=== PATIENT | female | born 1980 | race Caucasian/White ===

== ENCOUNTER 2016-07-05 06:53 | Inpatient (IN) | payer OTHER ==
[~2016-07-05] VITALS: Ht 162.6 cm; Wt 54.0 kg
[2016-07-05] VITALS (7 sets, daily range): BP systolic 113–141; BP diastolic 65–89; PULSE 60–73; RESP 18; Ht 162.6 cm; Wt 54.0 kg
[2016-07-05] MEDS ORDERED: LACTATED RINGER'S 1,000 ML IV PRN (07:00)
[2016-07-05] MEDS ORDERED: PREN1TAB62 PO (07:17)
[2016-07-05] MEDS ORDERED: LACTATED RINGER'S 1,000 ML IV SCH (07:19)
[2016-07-05] MEDS ORDERED: AMPICILLIN 2 GM/NS (PMX) 100 ML ONE (07:23)
[2016-07-05] MEDS ORDERED: METHYLERGONOVINE 0.2 MG INJ IM PRN (07:30)
[2016-07-05] MEDS ORDERED: OXYTOCIN 30 UNITS/LR 500 ML IV SCH ×3 (07:30→09:32)
[2016-07-05] MEDS ORDERED: MISOPROSTOL 200 MCG TAB PR PRN ×2 (07:30→10:00)
[2016-07-05] MEDS ORDERED: IBUPROFEN 600 MG TAB PO PRN (07:30)
[2016-07-05] MEDS ORDERED: OXYTOCIN 30 UNITS/LR 500 ML IV PRN ×2 (07:30→10:00)
[2016-07-05] MEDS ORDERED: AMPICILLIN 2 GM/NS (PMX) 100 ML IV ONE (07:30)
[2016-07-05] MEDS ORDERED: LIDOCAINE 1% (MPF) 30 ML INJ INJ PRN (07:30)
[2016-07-05] MEDS ORDERED: ACETAMINOPHEN/CODEINE #3 TAB PO PRN ×2 (07:30→10:00)
[2016-07-05] MEDS ORDERED: BUTORPHANOL 2 MG INJ IV PRN ×2 (07:30)
[2016-07-05] MEDS ORDERED: CARBOPROST 250 MCG INJ IM PRN ×2 (07:30→10:00)
--- NOTE | 2016-07-05 07:34 | TRIAGE ---
OB Triage Datetime Report Generated by CPN: 07/05/2016 07:34 Datetime: 07/05/2016 07:04 Stage of : OB Triage Time of Arrival: 07/05/2016 06:44 Arrived By: Wheelchair Arrived From: Home Chief Complaint: CARISSA Movement: Present Contractions: Irregular Rupture of Membranes: Denies Vaginal Bleeding: None Vaginal Discharge: Denies Recent Sexual Intercouse: Denies Abdominal Trauma: Not Applicable Initial Plan: CALL SERGO RIVERA Maternal Assessment Level of Consciousness: Fully Conscious DTR's/Clonus: DTRs 2+; No Clonus Headache: Denies Blurred Vision: No Respiratory Effort: Unlabored; Regular Rhythm; Equal Expansion Breath Sounds, Left: Clear and Equal Breath Sounds, Right: Clear and Equal Nausea/Vomiting: Denies RUQ Epigastric Pain: Denies Lower Extremities Edema: None Degree: None Upper Extremities Edema: None Degree: None Facial Edema: None Temperature Route: Oral Fall Risk Assessment History of Falling: (0) No Secondary Diagnosis: (0) No Ambulatory Aid: (0) Bedrest/Nurse Assist IV Therapy: (0) No Gait: (0) Normal/Bedrest/Immobile Mental Status: (0) Oriented to Own Ability Fall Score: 0 Fall Risk Score Definition: No Risk: No action required Labor Evaluation Monitor Mode: External Heart Rate Monitor Mode: External US Pain Assessment Pain Scale: 10 Pain Presence: Intermittent Pain Type: Contraction Pain Location: Abdomen; Back Vaginal Exam Dilatation (cms): 7.0 Effacement (%): 90 Station: 0 Exam By: PRABHJOT LEOS Membrane Status: Bulging
[2016-07-05 07:35] LABS: ADD SCAN DIFF NO
[2016-07-05 07:42] LABS: BASOPHILS % 0.2 % (0.0-2.0); EOSINOPHILS # 0.1 10^3/ul (0.0-0.5); EOSINOPHILS % 0.3 % (0.0-7.0); HEMATOCRIT 32.9 % (37.0-47.0); HEMOGLOBIN 10.2 g/dl (12.0-16.0); LYMPHOCYTES % 12.1 % (15.0-51.0); MEAN CORPUSCULAR HEMOGLOBIN 23.2 pg (29.0-33.0); MEAN CORPUSCULAR VOLUME 74.8 fl (82.0-101.0); MEAN PLATELET VOLUME 11.3 fl (7.4-10.4); MONOCYTE # 0.6 10^3/ul (0.3-0.9); MONOCYTES % 3.7 % (0.0-11.0); NEUTROPHIL # 13.5 10^3/ul (1.6-7.5); NEUTROPHILS % 82.3 % (39.0-77.0); PLATELET COUNT 269 10^3/UL (140-415); RED CELL DISTRIBUTION WIDTH 15.3 % (11.5-14.5); WHITE BLOOD COUNT 16.4 10^3/ul (4.8-10.8)
[2016-07-05] MEDS ORDERED: CEFAZOLIN 2 GM/50 ML (PMX) 50 ML IVPB ONE (07:44)
[2016-07-05] MEDS ORDERED: FENTAnyl 50 MCG/ML VIAL ONE (07:45)
[2016-07-05] MEDS ORDERED: morphine SULFATE/PF (10 MG/10 ML) INJ ONE (07:45)
[2016-07-05 07:49] LABS: INR 0.85; PARTIAL THROMBOPLASTIN TIME 29.8 Sec (25.0-35.0); PROTIME 11.6 Sec (12.2-14.2); PT RATIO 0.9
[2016-07-05 07:58] LABS: ALBUMIN 3.5 g/dl (3.3-4.9)
[2016-07-05 07:59] LABS: CHLORIDE 101 mmol/L (97-110); POTASSIUM 4.7 mmol/L (3.5-5.1); SODIUM 137 mmol/L (135-144)
[2016-07-05] MEDS ORDERED: KETAMINE 500 MG INJ ONE (07:59)
[2016-07-05] MEDS ORDERED: DEXAMETHASONE 4 MG/ML 1 ML INJ ONE (07:59)
[2016-07-05] MEDS ORDERED: METOCLOPRAMIDE 10 MG INJ ONE (07:59)
[2016-07-05] MEDS ORDERED: ONDANSETRON 4 MG INJ ONE (07:59)
[2016-07-05] MEDS ORDERED: CEFAZOLIN 2 GM/50 ML (PMX) 50 ML IV SCH (08:00)
[2016-07-05 08:01] LABS: ANION GAP 19 (8-16); ASPARTATE AMINO TRANSFERASE 28 IU/L (15-46); BILIRUBIN,INDIRECT 0.1 mg/dl (0-1.1); BILIRUBIN,TOTAL 0.1 mg/dl (0.2-1.3); CARBON DIOXIDE 22 mmol/L (21-31); CREATININE 0.81 mg/dl (0.44-1.00)
[2016-07-05 08:02] LABS: ALANINE AMINOTRANSFERASE 33 IU/L (13-69); ALBUMIN/GLOBULIN RATIO 0.74; ALKALINE PHOSPHATASE 408 IU/L (42-121); BLOOD UREA NITROGEN 11 mg/dl (7-20); CALCIUM 8.7 mg/dl (8.4-10.2); GLUCOSE 101 mg/dl (70-220); TOTAL PROTEIN 8.2 g/dl (6.1-8.1)
[2016-07-05] MEDS ORDERED: PHENYLephrine (100 MCG/ML) 5ML SYG ONE (08:02)
[2016-07-05] MEDS ORDERED: MIDAZOLAM 1 MG/ML 2 ML INJ ONE ×2 (08:03→08:28)
[2016-07-05] MEDS ORDERED: GLYCOPYRROLATE 0.4 MG INJ ONE (08:03)
[2016-07-05 08:27] LABS: AADO2 Cord Arterial 62.1 mmHg; Arterial Cord Blood pCO2 37.7 mmHG (25-50); CBA Base Excess -4.4 mmol/L; CBA Oxygen Sat 88.8 mmHG; CBA Total Hemglobin 13.2 g/dl; Cord Blood Arterial pO2 42.5 mmHG (15.0-45.0); MODE ROOM AIR; MetHgb Cord Arterial 0.8 %; Sample Type CBA
[2016-07-05 08:36] LABS: CBV Base Excess -4.2 mmol/L; CBV COHb 3.6 %; CBV Oxygen Sat 68.9 mmHG; CBV Total Hemglobin 14.6 g/dl; Cord Blood Venous AADO2 54.8 mmHg; Fraction OxyHgb Cord Venous 65.7 %; MODE ROOM AIR; Sample Type CBV
[2016-07-05 08:40] LABS: ADD UMIC YES; URINE BILIRUBIN (Dip) NEGATIVE (NEGATIVE); URINE BLOOD (Dip) 2+ (NEGATIVE); URINE COLOR LT. YELLOW (YELLOW); URINE GLUCOSE (Dip) NEGATIVE (NEGATIVE); URINE KETONES (Dip) NEGATIVE (NEGATIVE); URINE LEUKOCYTE ESTERASE (Dip) NEGATIVE (NEGATIVE); URINE NITRITE (Dip) NEGATIVE (NEGATIVE); URINE TOTAL PROTEIN (Dip) NEGATIVE (NEGATIVE); URINE UROBILINOGEN (Dip) 0.2 E.U./dL (0.1-1.0)
[2016-07-05] MEDS ORDERED: ZOLPIDEM 5 MG TAB PO PRN ×2 (09:00→13:30)
[2016-07-05] MEDS ORDERED: DIPHENHYDRAMINE 50 MG INJ IV PRN ×2 (09:00→13:30)
[2016-07-05] MEDS ORDERED: ONDANSETRON 4 MG INJ IV PRN (09:00)
[2016-07-05] MEDS ORDERED: PROCHLORPERAZINE 10 MG INJ IV PRN ×2 (09:00→13:30)
[2016-07-05] MEDS ORDERED: NALOXONE (0.4 MG/ML) INJ IV PRN ×2 (09:00→13:30)
[2016-07-05] MEDS ORDERED: HYDROmorphONE 1 MG/ML SYG IV PRN ×2 (09:00)
[2016-07-05 09:08] LABS: SQUAMOUS EPITHELIAL CELL,UR FEW
[2016-07-05 09:18] LABS: BARBITURATES Negative (NEGATIVE); BENZODIAZEPINES Negative (NEGATIVE); CANNABINOIDS Negative (NEGATIVE); OPIATES Positive (NEGATIVE)
[2016-07-05 09:29] LABS: COCAINE Negative (NEGATIVE)
[2016-07-05] MEDS ORDERED: LANOLIN 7 GM TUBE TOP PRN (10:00)
--- NOTE | 2016-07-05 10:07 | HP ---
Date/Time of Note Date/Time of Note DATE: 07/05/16 TIME: 09:48 OB - History Hx of Present Free Text/Dictation I was called regarding this 36-year-old who presented with active labor to labor and delivery with complaint of contractions. Was told by RN about heart rate baseline is 100. Presented to the patient bedside. Patient had limited care at [facility] in [place], could not follow up due to not having insurance later. She had only one visit at out side clinic.No records available. She was noted to be 7 cm dilated. Per her reported due date she is postdate. RAUL: 07/05/2016 Past medical history: 1.History of hyperthyroidism, not on meds. Unclear control prior urine 2. History of substance abuse prior to . Patient admits she was using a lot of weights prior to but stopped once she noted that she is 3. Former smoker, stopped with . 4. Limited care. Had only one visit during 5. History of MRSA. Denies any lesion or abscess during Past surgical history: None Social history: Former smoker. Admits was using with prior to . Alcohol use prior to heart tracing evaluated,. base line in low 100's. did not resolve with position change and oxygen and IV fluids. there was subtle decelerations to 90s ' . Due to non reassuring heat tracing decision was made to proceed with section. Case also was discussed with perinatologist Dr. kimble, who agreed with this plan. Estimated Due Date: Jul 05, 2016 : 2 Para: 0 Spontaneous : 1 Therapeutic : 0 Care: Limited Care Obstetrical Complications: Other (limited care, had only one visit at [facility]. Could not continue visits due to not having any insurances.) Medical Complications: None Past Family/Social History * Past Medical, Surgical, Family and Obstetric Histories reviewed from chart. OB Admission Exam Vital Signs Vital Signs Vital Signs Date Time Temp Pulse Resp B/P Pulse Ox O2 Delivery O2 Flow Rate FiO2 07/05/16 07:15 97.8 66 18 115/77 Room Air There are scars related to ? Skin abscess, cannot rule out scars related to IV drug injection? Physical Exam HEENT: WNL Heart: Rhythm Normal Lungs: Clear Abdomen: WNL Extremities: Normal Reflexes: Normal Cervical Dilatation: 7cm Effacement: 75% Station: +1 Amniotic Fluid: Unevaluable (FHT: 100) Decelerations: Late Decelarations Varibility: Minimum Contractions on Admission: 6-10 Minutes Apart Intensity: Moderate Last 72 hourBlood Glucose FHT: noted to be in low 100's base line. there are subtle decelerations down to 90's. Cat 2 Last 72 hours Lab Results CBC & BMP 07/05/16 07:20 Liver Function Test 07/05/16 07:20 Alanine Aminotransferase (ALT/SGPT) 33 Albumin 3.5 Alkaline Phosphatase 408 H Aspartate Amino Transf (AST/SGOT) 28 Direct Bilirubin 0.00 Total Protein 8.2 H OB Assessment/Plan Reason for admission: active labor Other Assessment: Post date Non reassuring heart tracing Cat 2 Limited care History of SA. History of MRSA History of Hyperthyroidism, unclear control during . Other plan: Discussed NRFHT with the patient Recommended Emergency section Risk and benefits of section including risk of infection, bleeding damage to surrounding structures including bowel and bladder and risk of blood transfusion including but not limited to blood borne infection including HIV, hepatitis B and C and transfusion reactions discussed with the patient in detail. Informed consent was obtained. Patient received a dose of Ancef on the way to the OR. Anesthesia or and NICU was informed. Patient verbalized complete understanding about all the risks. JOHN LEDBETTER MD Jul 05, 2016 09:59
--- NOTE | 2016-07-05 10:16 | OPR ---
Operative Report Planned Procedure Free Text/Dictation Due to nonreassuring heart tracing and limited care, patient is in active labor but still quite far from delivery. Category 2 tracing Decision was made to proceed with emergency section. Risk and benefit of procedure discussed with the patient in detail prior to surgery. Please see H&P Procedure date Jul 05, 2016 Procedure(s) Emergency section via Pfannenstiel skin incision Performed by: JOHN LEDBETTER MD Assisting provider: ANIBAL SUMNER MD Anesthesiologist: MIQUEL BARKSDALE DO Pre-procedure diagnosis 1-postdates 2 nonreassuring heart tracing- Category 2 3-active labor, First stage Anesthesia Type: general spinal Anesthesia type other Started with a spinal, then switched to Ketamine. please see the anesthesia note for this part Procedure Description Under spinal, and then Ketamine anesthesia, the patient was prepped and draped and placed in a supine position, tilted to the left. Pfannenstiel incision was made, carried through the subcutaneous tissue. Bleeders brought under control with electrocautery. Fascia incised to the length of the incision. Rectus muscles from the fascia, divided midline. Peritoneum exposed, entered through a transverse incision. Exploration of abdomen revealed gravid uterus. Bladder flap was developed. Transverse incision was made in the lower segment of the uterus. Amniotic sac ruptured. Clear amniotic fluid noted. Then the baby; s head was grasped and was brought up to the incision. cord along the body and nuchal cord x 1 noted that released upon delivery. Nasal oropharyngeal suction was performed. The baby was handed to the team for immediate attention. Baby was a boy with 8 and 8. cord gas and cord blood obtained. The placenta was delivered manually intact. Uterine cavity was cleaned with wet sponge and drainage established. Uterus closed in 2 layers using 1-0 monocryl. in continuous fashion and then imbrication done. There was an extension to the right uterine artery and was actively bleeding that was controlled using 2 figure of eight sutures using SH needle and 0 vicryl. excellent hemostasis was obtained. then the Peritoneal cavity irrigated with warm saline. Sponge, needle and instrument count reported to be correct. Abdominal peritoneum closed with 2-0 ] continuously. Rectus muscle approximated with [2-0 ]. Fascia closed with 1-0 vicryl , and skin closed with 3-0 monocryl in the sub Q fashion. Estimated blood loss 600 mL. Urine bag was draining clear yellow yrine Post-Procedure Post-procedure diagnosis Non reassuring heart tracing Cord along the body and neck Findings: Live Baby [], Apgars [] and [], weight [], position [], [] presentation []cord. Specimen removed: Yes Complications: None Pt Condition post procedure: stable Disposition: PACU Physician Certification I, the undersigned physician, hereby certify that I have discussed the procedure described in this consent form with this patient (or the patient's legal sales representative health insurance), including: * The risk and benefits of the procedure; * Any adverse reactions that may reasonably be expected to occur; * Any alternative efficacious methods of treatment which may be medically viable ; * The potential problems that may occur during recuperation; * Potential for blood transfusion and associated risks/benefits; and * Any research or economic interest I may have regarding this treatment. I further certify that the patient/legally responsible person was encouraged to ask question and that all questions were answered. JOHN LEDBETTER MD Jul 05, 2016 10:16
[2016-07-05] MEDS ORDERED: AMPICILLIN 1 GM/NS (PMX) 50 ML IV SCH (11:30)
[2016-07-05] MEDS: IBUPROFEN 600 MG TAB PO SCH ×2 (12:00→17:53)
[2016-07-05] MEDS: LACTATED RINGER'S 1,000 ML IV SCH ×2 (12:33→20:53)
[2016-07-05] MEDS: HYDROmorphONE 1 MG/ML SYG IV PRN ×3 (15:52→22:12)
[2016-07-06 00:30] VITALS: BP 132/76; PULSE 70; RESP 18
[2016-07-06] MEDS: LACTATED RINGER'S 1,000 ML IV SCH ×3 (01:32→17:32)
[2016-07-06] MEDS: HYDROmorphONE 1 MG/ML SYG IV PRN ×3 (02:23→07:58)
[2016-07-06] MEDS: ONDANSETRON 4 MG INJ IV PRN ×2 (03:46→09:43)
[2016-07-06 03:50] VITALS: BP 130/78; PULSE 66; RESP 18
[2016-07-06] MEDS: IBUPROFEN 600 MG TAB PO SCH ×4 (06:00→17:50)
[2016-07-06 08:00] VITALS: BP 121/79; PULSE 67; RESP 20
[2016-07-06 09:50] LABS: ADD SCAN DIFF NO
[2016-07-06 09:58] LABS: ABNORMAL IP MESSAGE 1; BASOPHILS % 0.2 % (0.0-2.0); LYMPHOCYTES # 1.9 10^3/ul (0.8-2.9); LYMPHOCYTES % 10.7 % (15.0-51.0); MEAN CORPUSCULAR HEMOGLOBIN 23.4 pg (29.0-33.0); MEAN CORPUSCULAR HGB CONC 31.9 g/dl (32.0-37.0); MEAN CORPUSCULAR VOLUME 73.4 fl (82.0-101.0); MEAN PLATELET VOLUME 10.9 fl (7.4-10.4); MONOCYTE # 0.9 10^3/ul (0.3-0.9); MONOCYTES % 5.1 % (0.0-11.0); NEUTROPHIL # 14.9 10^3/ul (1.6-7.5); PLATELET COUNT 283 10^3/UL (140-415); RED BLOOD COUNT 2.86 10^6/ul (4.20-5.40); RED CELL DISTRIBUTION WIDTH 15.2 % (11.5-14.5); WHITE BLOOD COUNT 17.9 10^3/ul (4.8-10.8)
[2016-07-06 10:07] LABS: HEMOGLOBIN 6.7 g/dl (12.0-16.0)
[2016-07-06 12:00] VITALS: BP 130/80; PULSE 88; RESP 18
--- NOTE | 2016-07-06 12:07 | PN ---
Date/Time of Note Date/Time of Note DATE: 07/06/16 TIME: 11:49 OB Subjective Subjective Subjective July 06, 2016 Post C Section day 1 This patient is a 36 years old 2 para who came to the hospital yesterday in labor her due date was July 05, 2069 She had just 1 single visit and was in poor health. It appears that she must be using narcotic drug. However we do not have the any firm evidence of this because she had a narcotic during her spinal anesthesia and drug screen could not be performed today She has history of MRSA Patient is somewhat sleepy She is afebrile Abdomen is soft , Fundus is firm Moderate amount of lochia Breasts are soft, Nipples are intact No calf tenderness. She is anemic pale conjunctiva Her hemoglobin and hematocrit were 10.2 and 32.9 respectively prior to C- section this morning except 6.7 and 21.1 Plan; we will repeat the hemoglobin and hematocrit at 2 PM if the result is the same we will transfuse couple units of blood Her apparently is not in a good condition and . As a precaution we requested that her to go home Laboratory Tests Test 07/06/16 09:17 Basophils # 0.010^3/ul Basophils % 0.2% Eosinophils # 0.010^3/ul Eosinophils % 0.0% Hematocrit 21.0% Hemoglobin 6.7g/dl Lymphocytes # 1.910^3/ul Lymphocytes % 10.7% Mean Corpuscular Hemoglobin 23.4pg Mean Corpuscular Hemoglobin Concent 31.9g/dl Mean Corpuscular Volume 73.4fl Mean Platelet Volume 10.9fl Monocytes # 0.910^3/ul Monocytes % 5.1% Neutrophils # 14.910^3/ul Neutrophils % 83.0% Nucleated Red Blood Cells # 0.010^3/ul Nucleated Red Blood Cells % 0.0/100WBC Platelet Count 49495^3/UL Red Blood Count 2.8610^6/ul Red Cell Distribution Width 15.2% White Blood Count 17.910^3/ul Current Medications Medications (Trade) Dose Ordered Sig/Taisha Route PRN Reason Start Time Stop Time Status Last Admin Dose Admin Ampicillin 100 ml @ ud STK-MED ONCE .ROUTE 07/05/16 07:23 07/05/16 07:24 DC Lactated Ringer's 1,000 ml @ 125 mls/hr Q8H IV 07/05/16 07:19 07/05/16 09:36 DC 07/05/16 08:59 Ampicillin 100 ml @ 100 mls/hr ONCE ONCE IV 07/05/16 07:30 07/05/16 08:29 DC 07/05/16 07:20 Ampicillin (Ampicillin 1 Gm/ NS (Pmx)) 50 ml @ 100 mls/hr Q4H IV 07/05/16 11:30 07/05/16 11:30 DC Butorphanol Tartrate (Stadol) 1 mg Q2H PRN IV PAIN 07/05/16 07:30 07/05/16 09:37 DC Butorphanol Tartrate (Stadol) 2 mg Q2H PRN IV PAIN 07/05/16 07:30 07/05/16 09:37 DC Lidocaine 30 ml 30 ml ONCE PRN INJ EPISIOTOMY/TEARING 07/05/16 07:30 07/05/16 09:36 DC Oxytocin/Lactated Ringer's 500 ml @ 125 mls/hr ONCE -MAY REPEAT X1 IV 07/05/16 07:30 07/05/16 09:36 DC 07/05/16 09:00 Oxytocin/Lactated Ringer's 500 ml @ 125 mls/hr ONCE IV 07/05/16 07:30 07/05/16 09:36 DC Ibuprofen (Motrin) 600 mg ONCE PRN PO Mild Pain (Pain Score 1-3) 07/05/16 07:30 07/05/16 09:36 DC Acetaminophen/ Codeine Phosphate 2 tab 2 tab ONCE PRN PO Moderate to Severe Pain (4-10) 07/05/16 07:30 07/05/16 09:36 DC Lactated Ringer's 1,000 ml @ 2,000 mls/hr Q30M PRN IV PRE-EPIDURAL BOLUS 07/05/16 07:00 07/05/16 09:36 DC Oxytocin/Lactated Ringer's 500 ml @ 0 mls/hr ONCE PRN IV For Hemorrhage Management 07/05/16 07:30 07/05/16 09:36 DC Methylergonovine Maleate (Methergine) 0.2 mg ONCE PRN IM VAGINAL BLEEDING 07/05/16 07:30 07/05/16 09:36 DC Carboprost Tromethamine (Hemabate) 250 mcg ONCE PRN IM VAGINAL BLEEDING 07/05/16 07:30 07/05/16 09:36 DC Misoprostol 1000 mcg 1,000 mcg ONCE PRN CA VAGINAL BLEEDING 07/05/16 07:30 07/05/16 09:36 DC Cefazolin Sodium/ Dextrose 50 ml @ 100 mls/hr ONCE IV 07/05/16 08:00 07/05/16 09:36 DC Cefazolin Sodium/ Dextrose (Ancef 2 Gm/50 ml (Pmx)) 50 ml @ ud STK-MED ONCE IVPB 07/05/16 07:44 07/05/16 07:45 DC Fentanyl (Sublimaze) 100 mcg STK-MED ONCE .ROUTE 07/05/16 07:45 07/05/16 07:46 DC Morphine Sulfate (Duramorph) 10 mg STK-MED ONCE .ROUTE 07/05/16 07:45 07/05/16 07:46 DC Ketamine HCl (Ketalar) 500 mg STK-MED ONCE .ROUTE 07/05/16 07:59 07/05/16 08:00 DC Ondansetron HCl (Zofran Inj) 4 mg STK-MED ONCE .ROUTE 07/05/16 07:59 07/05/16 08:00 DC Dexamethasone (Decadron) 4 mg STK-MED ONCE .ROUTE 07/05/16 07:59 07/05/16 08:00 DC Metoclopramide HCl (Reglan) 10 mg STK-MED ONCE .ROUTE 07/05/16 07:59 07/05/16 08:00 DC Phenylephrine HCl (Everett-Synephrine Inj Syg) 500 mcg STK-MED ONCE .ROUTE 07/05/16 08:02 07/05/16 08:03 DC Glycopyrrolate (Robinul) 0.4 mg STK-MED ONCE .ROUTE 07/05/16 08:03 07/05/16 08:04 DC Midazolam HCl (Versed) 2 mg STK-MED ONCE .ROUTE 07/05/16 08:03 07/05/16 08:04 DC Midazolam HCl (Versed) 2 mg STK-MED ONCE .ROUTE 07/05/16 08:28 07/05/16 08:29 DC Naloxone HCl (Narcan) 0.1 mg Q2M PRN IV FOR RESP RATE 8 OR LESS 07/05/16 09:00 07/05/16 09:36 DC Hydromorphone HCl (Dilaudid) 0.2 mg Q3H PRN IV PAIN LEVEL 1-5 07/05/16 09:00 07/05/16 09:37 DC Hydromorphone HCl (Dilaudid) 0.4 mg Q3H PRN IV PAIN LEVEL 6-10 07/05/16 09:00 07/05/16 09:37 DC Diphenhydramine HCl (Benadryl) 25 mg Q6H PRN IV ITCHING 07/05/16 09:00 07/05/16 09:37 DC Ondansetron HCl (Zofran Inj) 4 mg Q6H PRN IV NAUSEA AND/OR VOMITING 07/05/16 09:00 07/05/16 09:37 DC Prochlorperazine (Compazine Inj) 10 mg ONCE PRN IV NAUSEA AND/OR VOMITING 07/05/16 09:00 07/05/16 09:37 DC Zolpidem Tartrate 5 mg 5 mg HS MAY REPEAT X 1 PRN PO INSOMNIA 07/05/16 09:00 07/05/16 09:37 DC Lactated Ringer's 1,000 ml @ 125 mls/hr Q8H IV 07/05/16 09:32 07/05/16 20:53 Oxytocin/Lactated Ringer's 500 ml @ 125 mls/hr Q4H IV 07/05/16 09:32 07/05/16 17:31 DC Acetaminophen/ Codeine Phosphate (Tylenol No.3) 1 tab Q4H PRN PO PAIN LEVEL 4-6 07/05/16 10:00 Ibuprofen (Motrin) 600 mg Q6 PO 07/05/16 12:00 Simethicone (Mylicon) 160 mg Q8H PRN PO DISTENSION/GAS/BLOATING 07/05/16 10:00 Lanolin (Cld-C-Gpyueh) 1 applic BEDSIDE MEDICATION PRN TOP BEDSIDE FOR RODOLFO TO NIPPLES 07/05/16 10:00 Diphtheria/ Tetanus/Acell Pertussis (Adacel) 0.5 ml ONCE ONCE IM* 07/08/16 09:00 07/08/16 09:01 Measles/Mumps/ Rubella Vaccine Live 0.5 ml 0.5 ml ONCE ONCE SC* 07/08/16 09:00 07/08/16 09:01 Oxytocin/Lactated Ringer's 500 ml @ 0 mls/hr ONCE PRN IV For Hemorrhage Management 07/05/16 10:00 Carboprost Tromethamine (Hemabate) 250 mcg ONCE PRN IM VAGINAL BLEEDING 07/05/16 10:00 Misoprostol (Cytotec) 1,000 mcg ONCE PRN CA VAGINAL BLEEDING 07/05/16 10:00 Naloxone HCl (Narcan) 0.1 mg Q2M PRN IV FOR RESP RATE 8 OR LESS 07/05/16 13:30 07/06/16 13:29 Hydromorphone HCl (Dilaudid) 0.2 mg Q3H PRN IV PAIN LEVEL 1-5 07/05/16 13:30 07/06/16 13:29 07/06/16 07:58 Hydromorphone HCl (Dilaudid) 0.4 mg Q1HWA PRN IV PAIN LEVEL 6-10 07/05/16 13:30 07/06/16 13:29 07/06/16 02:23 Diphenhydramine HCl (Benadryl) 25 mg Q6H PRN IV ITCHING 07/05/16 13:30 07/06/16 13:29 Ondansetron HCl (Zofran Inj) 4 mg Q6H PRN IV NAUSEA AND/OR VOMITING 07/05/16 13:30 07/06/16 13:29 07/06/16 09:43 Prochlorperazine (Compazine Inj) 10 mg ONCE PRN IV NAUSEA AND/OR VOMITING 07/05/16 13:30 07/06/16 13:29 Zolpidem Tartrate (Ambien) 5 mg HS MAY REPEAT X 1 PRN PO INSOMNIA 07/05/16 13:30 07/06/16 13:29 The is doing fairly well at this time does not have any sign of withdrawal symptoms RICHI BARR MD Jul 06, 2016 12:05
[2016-07-06 16:00] VITALS: BP 111/58; PULSE 57; RESP 20
[2016-07-06 17:21] LABS: ABNORMAL IP MESSAGE 1; ADD SCAN DIFF NO; HEMATOCRIT 19.5 % (37.0-47.0); MEAN CORPUSCULAR HEMOGLOBIN 24.3 pg (29.0-33.0); MEAN CORPUSCULAR HGB CONC 32.8 g/dl (32.0-37.0); MEAN CORPUSCULAR VOLUME 74.1 fl (82.0-101.0); MEAN PLATELET VOLUME 10.7 fl (7.4-10.4); PLATELET COUNT 284 10^3/UL (140-415); RED BLOOD COUNT 2.63 10^6/ul (4.20-5.40); RED CELL DISTRIBUTION WIDTH 15.5 % (11.5-14.5); WHITE BLOOD COUNT 17.3 10^3/ul (4.8-10.8)
[2016-07-06 17:26] LABS: HEMOGLOBIN 6.4 g/dl (12.0-16.0)
[2016-07-06 18:01] LABS: RUBELLA ANTIBODY - IGG 2.62
[2016-07-06] MEDS ORDERED: OXYCODONE/ACETAMINOPHEN (5/325) TAB PO PRN (18:30)
[2016-07-06] MEDS: OXYCODONE/ACETAMINOPHEN (5/325) TAB PO PRN ×2 (18:44→22:38)
[2016-07-06 18:54] LABS: LYMPHOCYTES # 1.2 10^3/ul (0.8-2.9); MONOCYTE # 0.7 10^3/ul (0.3-0.9); NEUTROPHIL # 14.9 10^3/ul (1.6-7.5)
[2016-07-06 20:00] VITALS: BP 100/57; PULSE 70; RESP 16
[2016-07-06] MEDS: SOD CHLORIDE 0.9% 1,000 ML IV SCH (20:32)
[2016-07-06] MEDS: FERROUS FUMARATE (SR) TAB PO SCH (21:00)
[2016-07-07] VITALS: BP 119/79; PULSE 61; RESP 20
[2016-07-07] MEDS: IBUPROFEN 600 MG TAB PO SCH ×4 (00:19→17:27)
[2016-07-07] MEDS: LACTATED RINGER'S 1,000 ML IV SCH (01:32)
[2016-07-07 03:45] VITALS: BP 137/79; PULSE 60; RESP 18
[2016-07-07] MEDS: SOD CHLORIDE 0.9% 1,000 ML IV SCH (04:30)
[2016-07-07] MEDS: OXYCODONE/ACETAMINOPHEN (5/325) TAB PO PRN ×4 (05:30→23:03)
--- NOTE | 2016-07-07 07:31 | QN ---
Documentation Comment POD#2 Pt doing well. Pain c/w PO meds. Ambulating, voiding and passing flatus. Bottle feeding mainly 2/2 desire allow her body time to clear meds from C/S although baby has been on the breast a few times yesterday and pt says latch is good. O: VS 97.9 137/79 60 18 Gen: well appearing, NAD CV: RRR, nl s1s2 Resp: CTAB Abd: soft, appropriately TTP, FF 1FB below umbilicus, NABS Inc: dressing removed. c/d/i with skin glue Ext: BLE symmetric, no edema b/l, nontender Labs Admission Hgb 10.2-> EBL 600ml -> POD#1 Hgb 6.4 A/P: POD#2 s/p emergent 1LTCS in the setting of NRFHT remote from delivery ->continue routine postop care -> support, explained the importance of regular to encourage milk supply ->encourage continued ambulation ->CBC today s/p 2u PRBC transfusion Likely d/c home tomorrow TONY MORRIS MD Jul 07, 2016 07:31
[2016-07-07 08:00] VITALS: BP 139/81; PULSE 55; RESP 18
[2016-07-07] MEDS: FERROUS FUMARATE (SR) TAB PO SCH ×2 (09:32→21:12)
[2016-07-07] MEDS: MULTIVIT/MIN/FOLATE/IRON/PREN TAB PO SCH (09:32)
[2016-07-07 11:15] LABS: ADD SCAN DIFF NO
[2016-07-07 11:19] LABS: BASOPHILS % 0.1 % (0.0-2.0); EOSINOPHILS # 0.1 10^3/ul (0.0-0.5); EOSINOPHILS % 0.5 % (0.0-7.0); HEMATOCRIT 27.5 % (37.0-47.0); HEMOGLOBIN 8.7 g/dl (12.0-16.0); LYMPHOCYTES # 2.1 10^3/ul (0.8-2.9); LYMPHOCYTES % 14.3 % (15.0-51.0); MEAN CORPUSCULAR HEMOGLOBIN 24.4 pg (29.0-33.0); MEAN CORPUSCULAR HGB CONC 31.6 g/dl (32.0-37.0); MEAN PLATELET VOLUME 10.9 fl (7.4-10.4); MONOCYTE # 0.9 10^3/ul (0.3-0.9); MONOCYTES % 6.4 % (0.0-11.0); NEUTROPHIL # 11.2 10^3/ul (1.6-7.5); NUCLEATED RED BLOOD CELLS% 0.2 /100WBC (0.0-0.0); PLATELET COUNT 298 10^3/UL (140-415); RED BLOOD COUNT 3.57 10^6/ul (4.20-5.40); RED CELL DISTRIBUTION WIDTH 15.4 % (11.5-14.5); WHITE BLOOD COUNT 14.6 10^3/ul (4.8-10.8)
[2016-07-07 12:00] VITALS: BP 122/55; PULSE 66; RESP 18
[2016-07-07] MEDS ORDERED: SENNA TAB PO SCH (13:30)
[2016-07-07 16:00] VITALS: BP 141/82; PULSE 55; RESP 16
[2016-07-07 20:00] VITALS: BP 128/76; PULSE 61; RESP 16
[2016-07-07] MEDS: SENNA/DOCUSATE NA (8.6MG/50MG) TAB PO SCH (21:12)
[2016-07-07] MEDS ORDERED: INFLUENZA VIRUS VACCINE 0.5 ML (DISPENSING) IM* ONE (23:30)
[2016-07-08] MEDS: IBUPROFEN 600 MG TAB PO SCH ×3 (00:11→13:07)
[2016-07-08 03:30] VITALS: BP 129/85; PULSE 57; RESP 18
[2016-07-08] MEDS: OXYCODONE/ACETAMINOPHEN (5/325) TAB PO PRN ×2 (03:33→09:26)
[2016-07-08 08:00] VITALS: BP 116/68; PULSE 55; RESP 16
[2016-07-08] MEDS ORDERED: DIPHTH/TET/ACEL PERTUSS (ADULT) 0.5 ML VIAL IM* ONE (09:00)
[2016-07-08] MEDS ORDERED: MEASLES,MUMPS,RUBELLA VACCINE INJ SC* ONE (09:00)
[2016-07-08] MEDS: FERROUS FUMARATE (SR) TAB PO SCH (09:11)
[2016-07-08] MEDS: MULTIVIT/MIN/FOLATE/IRON/PREN TAB PO SCH (09:11)
[2016-07-08] MEDS: SENNA/DOCUSATE NA (8.6MG/50MG) TAB PO SCH (09:11)
--- NOTE | 2016-07-08 10:56 | DS ---
Date/Time of Note Date/Time of Note DATE: 07/08/16 TIME: 10:50 Obstetrical Discharge Record Final Diagnosis Final Diagnosis: Term delivered Vaginal Delivery Obstetrical Delivery: Spontaneous Complications Augmentation: Yes Rupture of Membranes: No Condition on Discharge Physical Assessment Voiding: Yes Bowel Movement: Yes Breast: Soft, non-tender Fundus: Firm Calf Tenderness: No Patient Condition: Good 24 HR. SUMMARY 24 HR. SUMMARY Laboratory Tests Test 07/07/16 11:00 Basophils # 0.010^3/ul Basophils % 0.1% Eosinophils # 0.110^3/ul Eosinophils % 0.5% Hematocrit 27.5% Hemoglobin 8.7g/dl Lymphocytes # 2.110^3/ul Lymphocytes % 14.3% Mean Corpuscular Hemoglobin 24.4pg Mean Corpuscular Hemoglobin Concent 31.6g/dl Mean Corpuscular Volume 77.0fl Mean Platelet Volume 10.9fl Monocytes # 0.910^3/ul Monocytes % 6.4% Neutrophils # 11.210^3/ul Neutrophils % 77.0% Nucleated Red Blood Cells # 0.010^3/ul Nucleated Red Blood Cells % 0.2/100WBC Platelet Count 47607^3/UL Red Blood Count 3.5710^6/ul Red Cell Distribution Width 15.4% White Blood Count 14.610^3/ul Current Medications Medications (Trade) Dose Ordered Sig/Taisha Route PRN Reason Start Time Stop Time Status Last Admin Dose Admin Ampicillin 100 ml @ ud STK-MED ONCE .ROUTE 07/05/16 07:23 07/05/16 07:24 DC Lactated Ringer's 1,000 ml @ 125 mls/hr Q8H IV 07/05/16 07:19 07/05/16 09:36 DC 07/05/16 08:59 Ampicillin 100 ml @ 100 mls/hr ONCE ONCE IV 07/05/16 07:30 07/05/16 08:29 DC 07/05/16 07:20 Ampicillin (Ampicillin 1 Gm/ NS (Pmx)) 50 ml @ 100 mls/hr Q4H IV 07/05/16 11:30 07/05/16 11:30 DC Butorphanol Tartrate (Stadol) 1 mg Q2H PRN IV PAIN 07/05/16 07:30 07/05/16 09:37 DC Butorphanol Tartrate (Stadol) 2 mg Q2H PRN IV PAIN 07/05/16 07:30 07/05/16 09:37 DC Lidocaine 30 ml 30 ml ONCE PRN INJ EPISIOTOMY/TEARING 07/05/16 07:30 07/05/16 09:36 DC Oxytocin/Lactated Ringer's 500 ml @ 125 mls/hr ONCE -MAY REPEAT X1 IV 07/05/16 07:30 07/05/16 09:36 DC 07/05/16 09:00 Oxytocin/Lactated Ringer's 500 ml @ 125 mls/hr ONCE IV 07/05/16 07:30 07/05/16 09:36 DC Ibuprofen (Motrin) 600 mg ONCE PRN PO Mild Pain (Pain Score 1-3) 07/05/16 07:30 07/05/16 09:36 DC Acetaminophen/ Codeine Phosphate 2 tab 2 tab ONCE PRN PO Moderate to Severe Pain (4-10) 07/05/16 07:30 07/05/16 09:36 DC Lactated Ringer's 1,000 ml @ 2,000 mls/hr Q30M PRN IV PRE-EPIDURAL BOLUS 07/05/16 07:00 07/05/16 09:36 DC Oxytocin/Lactated Ringer's 500 ml @ 0 mls/hr ONCE PRN IV For Hemorrhage Management 07/05/16 07:30 07/05/16 09:36 DC Methylergonovine Maleate (Methergine) 0.2 mg ONCE PRN IM VAGINAL BLEEDING 07/05/16 07:30 07/05/16 09:36 DC Carboprost Tromethamine (Hemabate) 250 mcg ONCE PRN IM VAGINAL BLEEDING 07/05/16 07:30 07/05/16 09:36 DC Misoprostol 1000 mcg 1,000 mcg ONCE PRN [place] VAGINAL BLEEDING 07/05/16 07:30 07/05/16 09:36 DC Cefazolin Sodium/ Dextrose 50 ml @ 100 mls/hr ONCE IV 07/05/16 08:00 07/05/16 09:36 DC Cefazolin Sodium/ Dextrose (Ancef 2 Gm/50 ml (Pmx)) 50 ml @ ud STK-MED ONCE IVPB 07/05/16 07:44 07/05/16 07:45 DC Fentanyl (Sublimaze) 100 mcg STK-MED ONCE .ROUTE 07/05/16 07:45 07/05/16 07:46 DC Morphine Sulfate (Duramorph) 10 mg STK-MED ONCE .ROUTE 07/05/16 07:45 07/05/16 07:46 DC Ketamine HCl (Ketalar) 500 mg STK-MED ONCE .ROUTE 07/05/16 07:59 07/05/16 08:00 DC Ondansetron HCl (Zofran Inj) 4 mg STK-MED ONCE .ROUTE 07/05/16 07:59 07/05/16 08:00 DC Dexamethasone (Decadron) 4 mg STK-MED ONCE .ROUTE 07/05/16 07:59 07/05/16 08:00 DC Metoclopramide HCl (Reglan) 10 mg STK-MED ONCE .ROUTE 07/05/16 07:59 07/05/16 08:00 DC Phenylephrine HCl (Everett-Synephrine Inj Syg) 500 mcg STK-MED ONCE .ROUTE 07/05/16 08:02 07/05/16 08:03 DC Glycopyrrolate (Robinul) 0.4 mg STK-MED ONCE .ROUTE 07/05/16 08:03 07/05/16 08:04 DC Midazolam HCl (Versed) 2 mg STK-MED ONCE .ROUTE 07/05/16 08:03 07/05/16 08:04 DC Midazolam HCl (Versed) 2 mg STK-MED ONCE .ROUTE 07/05/16 08:28 07/05/16 08:29 DC Naloxone HCl (Narcan) 0.1 mg Q2M PRN IV FOR RESP RATE 8 OR LESS 07/05/16 09:00 07/05/16 09:36 DC Hydromorphone HCl (Dilaudid) 0.2 mg Q3H PRN IV PAIN LEVEL 1-5 07/05/16 09:00 07/05/16 09:37 DC Hydromorphone HCl (Dilaudid) 0.4 mg Q3H PRN IV PAIN LEVEL 6-10 07/05/16 09:00 07/05/16 09:37 DC Diphenhydramine HCl (Benadryl) 25 mg Q6H PRN IV ITCHING 07/05/16 09:00 07/05/16 09:37 DC Ondansetron HCl (Zofran Inj) 4 mg Q6H PRN IV NAUSEA AND/OR VOMITING 07/05/16 09:00 07/05/16 09:37 DC Prochlorperazine (Compazine Inj) 10 mg ONCE PRN IV NAUSEA AND/OR VOMITING 07/05/16 09:00 07/05/16 09:37 DC Zolpidem Tartrate 5 mg 5 mg HS MAY REPEAT X 1 PRN PO INSOMNIA 07/05/16 09:00 07/05/16 09:37 DC Lactated Ringer's 1,000 ml @ 125 mls/hr Q8H IV 07/05/16 09:32 07/05/16 20:53 Oxytocin/Lactated Ringer's 500 ml @ 125 mls/hr Q4H IV 07/05/16 09:32 07/05/16 17:31 DC Acetaminophen/ Codeine Phosphate (Tylenol No.3) 1 tab Q4H PRN PO PAIN LEVEL 4-6 07/05/16 10:00 Ibuprofen (Motrin) 600 mg Q6 PO 07/05/16 12:00 07/08/16 05:41 Simethicone (Mylicon) 160 mg Q8H PRN PO DISTENSION/GAS/BLOATING 07/05/16 10:00 07/07/16 21:14 Lanolin (Wvd-O-Epjbrt) 1 applic BEDSIDE MEDICATION PRN TOP BEDSIDE FOR RODOLFO TO NIPPLES 07/05/16 10:00 07/08/16 00:11 Diphtheria/ Tetanus/Acell Pertussis (Adacel) 0.5 ml ONCE ONCE IM* 07/08/16 09:00 07/08/16 09:01 DC 07/08/16 09:28 Measles/Mumps/ Rubella Vaccine Live 0.5 ml 0.5 ml ONCE ONCE SC* 07/08/16 09:00 07/08/16 09:01 DC Oxytocin/Lactated Ringer's 500 ml @ 0 mls/hr ONCE PRN IV For Hemorrhage Management 07/05/16 10:00 Carboprost Tromethamine (Hemabate) 250 mcg ONCE PRN IM VAGINAL BLEEDING 07/05/16 10:00 Misoprostol (Cytotec) 1,000 mcg ONCE PRN [place] VAGINAL BLEEDING 07/05/16 10:00 Naloxone HCl (Narcan) 0.1 mg Q2M PRN IV FOR RESP RATE 8 OR LESS 07/05/16 13:30 07/06/16 13:29 DC Hydromorphone HCl (Dilaudid) 0.2 mg Q3H PRN IV PAIN LEVEL 1-5 07/05/16 13:30 07/06/16 13:29 DC 07/06/16 07:58 Hydromorphone HCl (Dilaudid) 0.4 mg Q1HWA PRN IV PAIN LEVEL 6-10 07/05/16 13:30 07/06/16 13:29 DC 07/06/16 02:23 Diphenhydramine HCl (Benadryl) 25 mg Q6H PRN IV ITCHING 07/05/16 13:30 07/06/16 13:29 DC Ondansetron HCl (Zofran Inj) 4 mg Q6H PRN IV NAUSEA AND/OR VOMITING 07/05/16 13:30 07/06/16 13:29 DC 07/06/16 09:43 Prochlorperazine (Compazine Inj) 10 mg ONCE PRN IV NAUSEA AND/OR VOMITING 07/05/16 13:30 07/06/16 13:29 DC Zolpidem Tartrate (Ambien) 5 mg HS MAY REPEAT X 1 PRN PO INSOMNIA 07/05/16 13:30 07/06/16 13:29 DC Docusate Sodium/ Ferrous Fumarate (Shanae-Sequels) 1 tab BID PO 07/06/16 21:00 07/08/16 09:11 Prenat Multivit/ [facility]/Iron/Folic Ac ( S) 1 tab DAILY PO 07/07/16 09:00 07/08/16 09:11 Oxycodone/ Acetaminophen (Percocet (5/ 325)) 1 tab Q4H PRN PO PAIN 07/06/16 18:30 07/08/16 09:26 Oxycodone/ Acetaminophen 2 tab 2 tab Q4H PRN PO PAIN 07/06/16 18:30 Sodium Chloride (NS) 1,000 ml @ 125 mls/hr Q8H IV 07/06/16 20:30 07/06/16 20:32 Senna (Senokot) 2 tab BID PO 07/07/16 13:30 07/07/16 17:12 DC 07/07/16 14:18 Senna/Docusate Sodium (Senokot-S) 1 tab BID PO 07/07/16 21:00 07/08/16 09:11 Influenza Virus Vaccine (Fluzone) 0.5 ml ONCE ONCE IM* 07/07/16 23:30 07/07/16 23:31 DC 07/08/16 01:15 Post day 2 Patient is doing well, Ambulatory She is afebrile Abdomen is soft , Fundus is firm Moderate amount of lochia Breasts are soft, Nipples are intact No calf tenderness. Perineum is healing well. RICHI BARR MD Jul 08, 2016 10:56
== END 2016-07-08 13:28 | disposition home or self-care (01) | DRG 766 ==
LOC: L-D 06:53 → OBT 06:53 → L-D 07:01 → OBT 07:01 → L-D 07:49 → PP1 11:30
PROVIDERS: ADMIT Obstetrics & Gynecology; ATTEND Obstetrics & Gynecology
PROC: 10D00Z1 Extraction of Products of Conception, Low, Open Approach (ICD-10-PCS; principal; 2016-07-05 08:00)
DX: O76 Abnormality in fetal heart rate and rhythm complicating labor and delivery (principal); O48.0 Post-term pregnancy; Z3A.40 40 weeks gestation of pregnancy; Z37.0 Single live birth
CPT/HCPCS: 36415; 36430; 36600; 80053; 80307; 81001; 81003; 82803; 85025; 85610; 85730; 86592; 86703; 86762; 86850; 86885; 86900; 86901; 86920; 87081; 87086; 87340; 88307; 90686; 90715; 99464; G0463; J0290; J0690; J1100; J1170; J2250; J2274; J2370; J2405; J2590; J2765; J3010; J7030; J7120; P9016